=== PATIENT | female | born 1980 | race Hispanic/Latino ===

== ENCOUNTER 2017-08-15 22:09 | Inpatient (IN) | payer BC ==
[2017-08-15 22:49] VITALS: BMI 31.2
[2017-08-15] MEDS ORDERED: Diphenoxylate HCl/Atropine Tablet PO PRN (22:54)
[2017-08-15] MEDS ORDERED: Ondansetron HCl/PF 4 MG/2 ML Vial IVP PRN (22:54)
[2017-08-15] MEDS ORDERED: Carboprost 250 MCG/ML AMP IM PRN (22:54)
[2017-08-15] MEDS ORDERED: HYDROcodone/Acetaminophen 5/325 mg Tablet PO PRN (22:54)
[2017-08-15] MEDS ORDERED: Misoprostol 200 MCG TAB PR PRN (22:54)
[2017-08-15] MEDS ORDERED: Lidocaine 1% (PF) 30 ML VIAL SC PRN (22:54)
[2017-08-15] MEDS ORDERED: Acetaminophen 500 MG TAB PO PRN (22:54)
[2017-08-15] MEDS ORDERED: Promethazine HCl 25 MG/ML VIAL IM PRN (22:54)
[2017-08-15] MEDS ORDERED: LR 500 ML/Oxytocin 10 units 500 ML IV SCH (22:54)
[2017-08-15] MEDS ORDERED: Zolpidem Tartrate 5 MG TAB PO PRN (22:54)
[2017-08-15] MEDS ORDERED: Ibuprofen 800 MG TAB PO PRN (22:54)
[2017-08-15] MEDS: Lactated Ringer's 1,000 ML IV SCH (23:00)
[2017-08-15] MEDS: Misoprostol 100 MCG TAB VAG SCH (23:18)
[2017-08-15 23:21] LABS: Mean Platelet Volume 8.9 fL (7.4-10.4); Red Blood Cell (RBC) Count 3.71 mill/uL (4.20-5.40)
[2017-08-16] MEDS: Misoprostol 100 MCG TAB VAG SCH ×3 (01:58→11:46)
[2017-08-16] MEDS: Lactated Ringer's 1,000 ML IV SCH (06:29)
[2017-08-16] MEDS ORDERED: Lidocaine 1% (PF) 30 ML VIAL ONE (06:58)
[2017-08-16] MEDS: LR / Pitocin 40 units/1000 ml 1,000 ML IV PRN ×2 (07:21→09:47)
--- NOTE | 2017-08-16 07:37 | PDOC.LDHP ---
Labor and Delivery H&P Chief complaint: scheduled induction HPI: 37yo at 39w0d by LMP here for elective IOL. Current gestational age (weeks): 39 Due date: 08/22/17 Dating criteria: last menstrual period Grav: 4 Para: 2 OB History Details: h/o 19w loss with chorioamnionitis Current complications: none Abnormal US findings: No Past Medical History: denies Current medications: pre- vitamins Previous surgical history: cholecystectomy Allergies/Adverse Reactions: Allergies Allergy/AdvReac Type Severity Reaction Status Date / Time No Known Allergies Allergy Verified 08/15/17 22:48 Social history: none - Physical Exam Vital signs reviewed and normal: yes General: breathing through contractions Heart: RRR Lungs: CTAB Abdomen: gravid Extremeties: no edema FHT: category 1 [place] contractions every: q3min - Vaginal Exam cm dilated: 10 Effacement: 100% Station: 3+ (arom clear) - OB Labs Blood type: O RH: positive HIV: negative RPR: negative HEPSAg: negative 1 hour GCT: negative GBS: negative Additional Labs: RubImm - Assessment L&D Assessment: elective induction at term - Plan Plan: admit to L&D, informed consent obtained, anesthesia consult for pain management
--- NOTE | 2017-08-16 07:38 | PDOC.OPDEL ---
OB Operative/Delivery Note Delivery Dr/Surgeon: Adrianna Assist: n/a Pre-Delivery Diagnosis: elective induction Procedure/Post Delivery Dx: spontaneous vaginal delivery Weeks gestation: 39 Anesthesia: local - Findings A Sex: male Weight: 7 lb 9 oz - 5 min: 9 - 10 min: 9 - Additional Findings/Plan Placenta delivered: spontaneous Repaired Obstetrical Laceration: 2nd degree (repaired with 2-0 vicryl usual fashion excellent hemostasis) Estimated blood loss: 300 Compilations/Other Findings: NC x 1 Post delivery plan: routine recovery
[2017-08-16] MEDS ORDERED: Bisacodyl 10 MG SUPP PR PRN (10:36)
[2017-08-16] MEDS ORDERED: LR / Pitocin 40 units/1000 ml 1,000 ML IV SCH (10:36)
[2017-08-16] MEDS ORDERED: Adacel (T-DAP) 0.5 ML VIAL IM ONE (10:36)
[2017-08-16] MEDS ORDERED: Milk Of Magnesia 30 ML UDCUP PO PRN (10:36)
[2017-08-16] MEDS ORDERED: diphenhydrAMINE HCl 25 MG CAP PO PRN (10:36)
[2017-08-16] MEDS ORDERED: Preparation H Ointment 28 GM TUBE PR PRN (10:36)
[2017-08-16] MEDS ORDERED: HYDROcodone/Acetaminophen 5/325 mg Tablet PO PRN ×2 (10:36)
[2017-08-16] MEDS ORDERED: Ondansetron HCl/PF 4 MG/2 ML Vial IVP PRN (10:36)
[2017-08-16] MEDS ORDERED: Benzocaine/Menthol 20-0.5% 60 ML CAN TOP PRN (10:36)
[2017-08-16] MEDS: Docusate (Surfak) 240 MG CAP PO SCH ×2 (11:45→21:32)
[2017-08-16] MEDS: Ferrous Sulfate 325 MG TAB PO SCH ×2 (11:46→16:02)
[2017-08-16] MEDS: Prenatal Vitamin 1 TAB PO SCH (11:46)
[2017-08-16] MEDS: Ibuprofen 800 MG TAB PO SCH ×2 (16:02→21:32)
[2017-08-17 05:56] LABS: Hematocrit 31.4 % (36.0-47.0); Mean Platelet Volume 9.5 fL (7.4-10.4)
[2017-08-17] MEDS: Ibuprofen 800 MG TAB PO SCH ×3 (06:16→21:33)
[2017-08-17] MEDS: Prenatal Vitamin 1 TAB PO SCH (07:47)
[2017-08-17] MEDS: Docusate (Surfak) 240 MG CAP PO SCH ×2 (07:48→21:34)
[2017-08-17] MEDS: Ferrous Sulfate 325 MG TAB PO SCH ×2 (07:48→15:14)
--- NOTE | 2017-08-17 20:03 | PDOC.PP ---
Post Progress Note Post Day #: 1 PO intake tolerated: yes Flatus: yes Ambulation: yes Weight Weight 188 lb - Physical Examination General: NAD Cardiovascular: RRR Respiratory: clear to ausculation bilateral Abdominal: no distention, appropriately TTP Fundus firm & at: umb Skin: no rash Neurological: no gross focal deficits Psychiatric: normal affect Result Diagrams: 08/17/17 04:22 Additional Labs: Post Labs Hep Bs Antigen Non-Reactive S/CO (NonReactive) 08/15/17 22:56 (1) Term delivered Code(s): O80 - ENCOUNTER FOR FULL-TERM UNCOMPLICATED DELIVERY Status: Acute - Assessment/Plan VSSAF Doing well LC consult Rh pos RImm Home tomorrow
[2017-08-18] MEDS: Ibuprofen 800 MG TAB PO SCH (06:09)
--- NOTE | 2017-08-18 09:06 | PDOC.PP ---
Post Progress Note Post Day #: 2 PO intake tolerated: yes Flatus: yes Ambulation: yes Weight Weight 188 lb - Physical Examination General: NAD Cardiovascular: RRR Respiratory: clear to ausculation bilateral Abdominal: no distention, appropriately TTP Fundus firm & at: umb-2 Result Diagrams: 08/17/17 04:22 Additional Labs: Post Labs Hep Bs Antigen Non-Reactive S/CO (NonReactive) 08/15/17 22:56 (1) Term delivered Code(s): O80 - ENCOUNTER FOR FULL-TERM UNCOMPLICATED DELIVERY Status: Acute - Assessment/Plan VSSAF Doing well pain controlled bleeding light Rh pos RImm s/p LC DC home fu 6wk
[2017-08-18 09:39] VITALS: BP 132/66; TEMP 98.5
[2017-08-18] MEDS: Ferrous Sulfate 325 MG TAB PO SCH (09:42)
[2017-08-18] MEDS: Docusate (Surfak) 240 MG CAP PO SCH (09:43)
[2017-08-18] MEDS: Prenatal Vitamin 1 TAB PO SCH (09:43)
== END 2017-08-18 12:17 | disposition home or self-care (01) | DRG 775 ==
LOC: L&D 22:09 → 3SE 08-16 10:39 → 3SW 08-16 20:29
PROVIDERS: ADMIT Student in an Organized Health Care Education/Training Program; ATTEND Student in an Organized Health Care Education/Training Program
PROC: 10907ZC Drainage of Amniotic Fluid, Therapeutic from Products of Conception, Via Natural or Artificial Opening (ICD-10-PCS; 2017-08-15)
PROC: 10E0XZZ Delivery of Products of Conception, External Approach (ICD-10-PCS; principal; 2017-08-17)
PROC: 0KQM0ZZ Repair Perineum Muscle, Open Approach (ICD-10-PCS; 2017-08-17)
DX: O70.1 Second degree perineal laceration during delivery (principal); Z37.0 Single live birth; O69.81X0 Labor and delivery complicated by cord around neck, without compression, not applicable or unspecified; Z3A.39 39 weeks gestation of pregnancy
CPT/HCPCS: 36415; 85027; 86780; 87340; J0595; J2001

== ENCOUNTER 2018-07-24 01:14 | Emergency (ER) | payer BC ==
[2018-07-24 01:39] LABS: #Basophils 0.1 thou/uL (0.0-0.2); #Eosinphils 0.1 thou/uL (0.0-0.7); #Lymphocytes 3.4 thou/uL (1.20-3.40); #Monocytes 0.6 thou/uL (0.11-0.59); #Neutrophils 5.8 thou/uL (1.40-6.50); %Basophils 1.1 % (0.0-1.0); %Eosinophils 1.3 % (0.0-10.0); %Lymphocytes 33.7 % (21.0-51.0); %Monocytes 6.1 % (0.0-10.0); %Neutrophils 57.8 % (42.0-75.0); Hemoglobin 14.2 g/dL (12.0-16.0); Mean Corpuscular HGB CONC 34.4 g/dL (32.0-36.0); Mean Corpuscular Hemoglobin 30.2 pg (27.0-31.0); Mean Corpuscular Volume 87.9 fL (78.0-98.0); Platelet Count 280 thou/uL (130-400); RBC Distribution Width 11.6 % (11.5-14.5); Red Blood Cell (RBC) Count 4.69 mill/uL (4.20-5.40)
[2018-07-24 01:58] LABS: ALT (SGPT) 46 U/L (8-55); AST (SGOT) 76 U/L (5-34); Albumin 4.4 g/dL (3.5-5.0); Alkaline Phosphatase 99 U/L (40-150); Anion Gap 17 mmol/L (10-20); BUN (Urea Nitrogen) 10 mg/dL (7.0-18.7); Bilirubin, Total 0.6 mg/dL (0.2-1.2); Calc. Creatinine Clearance 0 mL/min (70-130); Calcium 9.5 mg/dL (7.8-10.44); Carbon Dioxide 20 mmol/L (22-29); Chloride 106 mmol/L (98-107); Estimated GFR-MDRD Greater than 90; Globulin 3.2 g/dL (2.4-3.5); Glucose 117 mg/dL (70-105); Potassium 3.7 mmol/L (3.5-5.1); Protein, Total 7.6 g/dL (6.0-8.3); Sodium 139 mmol/L (136-145)
[2018-07-24] MEDS ORDERED: Morphine 4 MG/ML VIAL ONE (02:04)
[2018-07-24 02:07] LABS: CK (CPK) 95 U/L (29-168); Lipase 42 U/L (8-78)
[2018-07-24 04:05] LABS: Bilirubin Negative (Negative); Blood, Urine Negative (Negative); Clarity CLEAR (Clear); Glucose, Urine (Dipstick) Negative (Negative); Leukocyte Negative (Negative); Nitrite Negative (Negative); Protein, Urine (Dipstick) Negative (Neg-Trace); Specific Gravity, Urine 1.007 (1.002-1.036)
== END 2018-07-24 04:46 | disposition home or self-care (01) ==
LOC: ERS 01:14
DX: O99.611 Diseases of the digestive system complicating pregnancy, first trimester (principal); K29.70 Gastritis, unspecified, without bleeding; Z87.442 Personal history of urinary calculi
CPT/HCPCS: 80053; 81003; 82550; 83690; 84702; 85025; 93005; 96361; 96374; J2270

== ENCOUNTER 2018-07-29 17:52 | Emergency (ER) | payer BC ==
[2018-07-29 18:37] LABS: #Lymphocytes 1.6 thou/uL (1.20-3.40); #Monocytes 0.5 thou/uL (0.11-0.59); #Neutrophils 4.8 thou/uL (1.40-6.50); %Basophils 0.5 % (0.0-1.0); %Eosinophils 0.6 % (0.0-10.0); %Lymphocytes 22.4 % (21.0-51.0); %Monocytes 7.4 % (0.0-10.0); %Neutrophils 69.1 % (42.0-75.0); Mean Corpuscular HGB CONC 32.6 g/dL (32.0-36.0); Mean Corpuscular Hemoglobin 29.3 pg (27.0-31.0); Mean Corpuscular Volume 89.7 fL (78.0-98.0); Platelet Count 294 thou/uL (130-400); RBC Distribution Width 11.7 % (11.5-14.5); Red Blood Cell (RBC) Count 4.78 mill/uL (4.20-5.40)
[2018-07-29 18:58] LABS: ALT (SGPT) 285 U/L (8-55); AST (SGOT) 342 U/L (5-34); Albumin 4.4 g/dL (3.5-5.0); Alkaline Phosphatase 169 U/L (40-150); Anion Gap 15 mmol/L (10-20); BUN (Urea Nitrogen) 7 mg/dL (7.0-18.7); Bilirubin, Total 1.9 mg/dL (0.2-1.2); Calc. Creatinine Clearance 0 mL/min (70-130); Calcium 9.3 mg/dL (7.8-10.44); Carbon Dioxide 21 mmol/L (22-29); Chloride 106 mmol/L (98-107); Estimated GFR-MDRD Greater than 90; Globulin 3.1 g/dL (2.4-3.5); Glucose 106 mg/dL (70-105); Lipase 32 U/L (8-78); Potassium 3.7 mmol/L (3.5-5.1); Protein, Total 7.5 g/dL (6.0-8.3); Sodium 138 mmol/L (136-145)
== END 2018-07-29 19:30 | disposition left against medical advice (07) ==
LOC: ERS 17:52
DX: Z53.21 Procedure and treatment not carried out due to patient leaving prior to being seen by health care provider (principal)
CPT/HCPCS: 36415; 80053; 83690; 84702; 85025; 93005

== ENCOUNTER 2018-08-02 14:22 | Inpatient (IN) | payer BC ==
[2018-08-02 15:11] LABS: #Lymphocytes 1.6 thou/uL (1.20-3.40); #Monocytes 0.5 thou/uL (0.11-0.59); #Neutrophils 6.9 thou/uL (1.40-6.50); %Basophils 0.1 % (0.0-1.0); %Eosinophils 0.4 % (0.0-10.0); %Monocytes 5.9 % (0.0-10.0); %Neutrophils 75.7 % (42.0-75.0); Hemoglobin 14.3 g/dL (12.0-16.0); Mean Corpuscular HGB CONC 33.8 g/dL (32.0-36.0); Mean Corpuscular Hemoglobin 30.3 pg (27.0-31.0); Mean Corpuscular Volume 89.6 fL (78.0-98.0); Mean Platelet Volume 8.2 fL (7.4-10.4); Platelet Count 286 thou/uL (130-400); RBC Distribution Width 11.6 % (11.5-14.5); Red Blood Cell (RBC) Count 4.72 mill/uL (4.20-5.40); White Blood Cell (WBC) Count 9.1 thou/uL (4.8-10.8)
[2018-08-02 15:35] LABS: ALT (SGPT) 345 U/L (8-55); AST (SGOT) 166 U/L (5-34); Albumin 4.3 g/dL (3.5-5.0); Alkaline Phosphatase 289 U/L (40-150); Anion Gap 13 mmol/L (10-20); BUN (Urea Nitrogen) 8 mg/dL (7.0-18.7); Calc. Creatinine Clearance 0 mL/min (70-130); Calcium 9.4 mg/dL (7.8-10.44); Carbon Dioxide 23 mmol/L (22-29); Chloride 105 mmol/L (98-107); Estimated GFR-MDRD Greater than 90; Globulin 3.3 g/dL (2.4-3.5); Glucose 106 mg/dL (70-105); Lipase 37 U/L (8-78); Potassium 3.8 mmol/L (3.5-5.1); Protein, Total 7.6 g/dL (6.0-8.3); Sodium 137 mmol/L (136-145)
[2018-08-02] MEDS ORDERED: Ondansetron HCl/PF 4 MG/2 ML Vial ONE (15:40)
[2018-08-02] MEDS ORDERED: Morphine 4 MG/ML VIAL ONE (15:41)
[2018-08-02 17:19] LABS: Bilirubin Negative (Negative); Blood, Urine Negative (Negative); Clarity CLOUDY (Clear); Glucose, Urine (Dipstick) Negative (Negative); Leukocyte Small (Negative); Nitrite Negative (Negative); Protein, Urine (Dipstick) Trace mg/dL (Neg-Trace); Specific Gravity, Urine 1.023 (1.002-1.036)
[2018-08-02 17:22] LABS: Bacteria/HPF None Seen HPF (None Seen); Hyaline Casts/LPF 0-3 HYALINE CAST LPF (0-3 Hyaline); Squamous Epithelial 0-3 HPF (0-3); WBC/HPF 0-3 HPF (0-3)
[2018-08-02 17:44] LABS: Crystals/HPF 1+ AMORPH PHOS HPF (Negative); RBC/HPF 0-3 HPF (0-3)
--- NOTE | 2018-08-02 19:49 | PDOC.FPRHP ---
- History of Present Illness Chief Complaint: abdominal pain History of Present Illness: This is a 38 yo F presenting with a CC of abdominal pain. Patient has a PMH of gallstones s/p cholecystectomy and kidney stones. Patient is currently 5 weeks by LMP 06/24/2018 and is a . Patient has beent to the ED 3 times over the past 9 days for the same pain. She began having midepigastric pain about 2 weeks ago. She went to the ER on Wednesday07/30/18 in [place] where an US showed a gallstone in the CBD. The patient describes the pain as sharp, non radiating, intermittent. Drinking makes the pain worse, nothing makes the pain better. She has tried modifying her diet and stated this helped for about 1 week but the pain returned. The patient endorses episodes of vomiting X2 when she gets the pain. She has had decreased PO intake since the pain began. She denies fever, burning/itching/irriation with urination, no vaginal bleeding or leakage from below, no chest pain, SOB, headache, vision changes, or LE swelling.. - Allergies/Adverse Reactions Allergies Allergy/AdvReac Type Severity Reaction Status Date / Time No Known Allergies Allergy Verified 08/02/18 20:10 - Home Medications Medication Instructions Recorded Confirmed Type 21/Iron Fu/Folic Acid 1 tab PO DAILY 08/02/18 08/02/18 History [ Complete Caplet] - History PMHx: kidney stones, gallstones PSHx: cholecystectomy 6 yrs ago FHx: non-contributory Social: denies tobacco, alcohol, or drug use - Review of Systems General: denies: fever/chills, weight/appetite/sleep changes, night sweats, fatigue Eyes: denies: eye pain, vision changes ENT: denies: nasal congestion, rhinorrhea Respiratory: denies: shortness of breath Cardiovascular: denies: chest pain, palpitation, edema Gastrointestinal: reports: vomiting, abdominal pain. denies: nausea, diarrhea, constipation Genitourinary: denies: incontinence, dysuria, polyuria, discharge Skin: denies: rashes, jaundice, itching Musculoskeletal: denies: pain, tenderness, stiffness, swelling - Vital signs BP: 117/70 HR: 74 RR: 16-18 Tmax: 98.1 Pox: 99% on RA Wt: 74.4kg - Physical Exam Constitutional: NAD, awake, alert and oriented, well developed HEENT: normocephalic and atraumatic, EOMI, grossly normal vision, grossly normal hearing, MMM, good dention Neck: supple, FROM Chest: no-tender to palpation, no lesions Heart: RRR, normal S1/S2, no murmurs/rubs/gallops, pulses present, no edema Lungs: CTAB, no respiratory distress, good air movement, no wheezing Abdomen: bowel sounds present -Abdomen: TTP in midepigastrium, guarding presenting, no rebound Skin: no rash/lesions, capillary refill <2 seconds, no jaundice Psychiatric: normal mood and affect, good judgment and insight FMR H&P: Results - Labs Result Diagrams: 08/02/18 14:57 08/02/18 14:57 Lab results: WBC 9.1 thou/uL (4.8-10.8) 08/02/18 14:57 Hgb 14.3 g/dL (12.0-16.0) 08/02/18 14:57 Hct 42.3 % (36.0-47.0) 08/02/18 14:57 MCV 89.6 fL (78.0-98.0) 08/02/18 14:57 Plt Count 286 thou/uL (130-400) 08/02/18 14:57 Neutrophils % 75.7 % (42.0-75.0) H 08/02/18 14:57 Sodium 137 mmol/L (136-145) 08/02/18 14:57 Potassium 3.8 mmol/L (3.5-5.1) 08/02/18 14:57 Chloride 105 mmol/L (98-107) 08/02/18 14:57 Carbon Dioxide 23 mmol/L (22-29) 08/02/18 14:57 BUN 8 mg/dL (7.0-18.7) 08/02/18 14:57 Creatinine 0.65 mg/dL (0.6-1.1) 08/02/18 14:57 Glucose 106 mg/dL (70-105) H 08/02/18 14:57 Calcium 9.4 mg/dL (7.8-10.44) 08/02/18 14:57 Total Bilirubin 1.0 mg/dL (0.2-1.2) 08/02/18 14:57 AST 166 U/L (5-34) H 08/02/18 14:57 ALT 345 U/L (8-55) H 08/02/18 14:57 Alkaline Phosphatase 289 U/L (40-150) H 08/02/18 14:57 Serum Total Protein 7.6 g/dL (6.0-8.3) 08/02/18 14:57 Albumin 4.3 g/dL (3.5-5.0) 08/02/18 14:57 Lipase 37 U/L (8-78) 08/02/18 14:57 Urine Ketones 40 mg/dL (Negative) H 08/02/18 17:00 Urine Blood Negative (Negative) 08/02/18 17:00 Urine Nitrite Negative (Negative) 08/02/18 17:00 Ur Leukocyte Esterase Small (Negative) H 08/02/18 17:00 Urine RBC 0-3 HPF (0-3) 08/02/18 17:00 Urine WBC 0-3 HPF (0-3) 08/02/18 17:00 Ur Squamous Epith Cells 0-3 HPF (0-3) 08/02/18 17:00 Urine Bacteria None Seen HPF (None Seen) 08/02/18 17:00 FMR H&P: A/P - Problem List (1) Choledocholithiasis Current Visit: Yes Status: Acute Code(s): K80.50 - CALCULUS OF BILE DUCT W/ O CHOLANGITIS OR CHOLECYST W/O OBST - Plan This is a 38 yo F here for abdominal pain 2/2 to choledocholithiasis. Abdominal pain 2/2 to choledocholithiasis - [facility] of GI consulted - MRI pending; possible MRCP tomorrow - Tylenol PRN and morphine for pain - Zofran for nausea - NPO at midnight for MRCP procedure tomorrow - CBC, CMP in AM - pt currently 5 weeks by LMP 06/24/18 and confirmed with urine test today - No LOF or vaginal bleeding, no CTX - Will continue to monitor Case discussed with Dr. Marley FMR H&P: Upper Level - Pertinent history 38 yo female here for epigastric abd pain for the last couple weeks. Reports she has had 4 episodes which have required she come to the ER, most recently 3 days ago. It is a sharp pain, lasting up to 6 hours, relieved with medications given in the ER. Not relieved with tylenol. Unable to associate time of day of after meals. Assoc emesis including 2 episodes today. No diarrhea. confirmed at Dr. Rodas's office on 07/22/18. No previous issues with delivered pregnancies, all born at term. One of her miscarriages was due to an infections per patient. s/p cholecystectomy 2011. No other significant medical history. - Pertinent findings 117/70 HR: 74 Temp: 97.4 RR: 16 SO2: 99% on RA GEN: NAD, AOx3 CARD: RRR, no m/g/r PULM: CTAB ABD: BSx4, mildly TTP EXT: no edema WBC: 9.1 H/H: 14.3/42.3 Plt: 286 AST/ALT: 166/345 AlkPhos: 289 - Plan Date/Time: 08/02/181945 IDar DO, have evaluated this patient and agree with findings/plan as outlined by commercial intern resident. Pertinent changes/additions are listed here. 1. Choledocolithiasis GI consulted in the ED, plan is to MRCP in the AM. tylenol for pain until midnight; morphine prn pain NPO after midnight 2. 6 weeks
[2018-08-02] MEDS ORDERED: Acetaminophen 325 MG TAB PO PRN (20:02)
[2018-08-02] MEDS ORDERED: Ondansetron HCl/PF 4 MG/2 ML Vial IVP PRN (20:02)
[2018-08-02] MEDS ORDERED: Ondansetron ODT 4 MG TAB PO PRN (20:02)
[2018-08-02] MEDS ORDERED: Morphine 4 MG/ML VIAL SLOW IVP PRN (20:02)
[2018-08-02] MEDS ORDERED: Morphine 2 MG/ML SYRINGE SLOW IVP PRN (20:02)
[2018-08-02 20:14] LABS: Pregnancy Test - Urine (BHCG) POSITIVE (Negative); Pregu Control Background? CLEAR/WHITE (CLR/WHITE); Pregu Control Bar Appear? YES (CONTROL BAR); Specific Gravity 1.023 (1.002-1.036)
[2018-08-02 20:18] VITALS: BMI 27.3
[2018-08-02] MEDS ORDERED: Sodium Chloride 0.9% 1,000 ML IV SCH (20:23)
--- NOTE | 2018-08-03 00:17 | CON ---
DATE OF CONSULTATION: 08/02/2018 REASON FOR CONSULTATION: Abnormal liver function tests. CONSULTING PHYSICIAN: Jorge Whittaker DO HISTORY OF PRESENT ILLNESS: The patient is a 38-year-old female with no significant past medical his tory other than a completed in 08/2017 presenting with complaints of right upper quadrant/m idepigastric abdominal pain. She states that she was in her usual state of health until approximatel y 2-3 weeks ago when she had the acute onset of midepigastric abdominal pain characterized as a sharp type character, intermittent with periods of complete pain relief, nonradiating, which would reach a severity of 10/10. The pain would usually occur within 30-45 minutes of ingestion of food or liquid , would follow a crescendo decrescendo pattern, progressively worsening over the next 45 minutes and last for approximately 4-6 hours, at which point, it would slowly resolve over the next 1-2 hours. T he pain was worse with eating or drinking any particular food stuff (no specific food triggers) and l humberto down. The pain was better with the administration of pain medications upon her frequent visits to the ER. Associated symptoms include increased abdominal bloating, nausea and vomiting with emesis x2 with nonbloody material within the last 24 hours. She also endorses approximately a 5-pound weig ht loss during this time primarily due to anorexia related to increased abdominal pain. Upon chart r lauro, the patient had been seen at [facility] approximately 2-3 weeks ago and diagnosed with tracy ritis and placed on acid reflux medication. She was then visiting [facility] approximately 1 week ago w hen she had return of her right upper quadrant/midepigastric abdominal pain and seen [facility]. While in the Urgent Care Center, there was a right upper quadrant abdominal ultrasound th at showed possible echogenic foci within the distal common bile duct concerning for choledocholithias is. Of note, the patient also states that she is with her PCP running blood test recently and de termination that she has approximately 4-5 weeks' at this time. Currently, she denies any nausea, vomiting, fevers, chills, dysphagia, odynophagia, diarrhea or const ipation. REVIEW OF SYSTEMS: A 10-category review of systems was obtained with all responses negative except f or the pertinent positives as listed in the HPI. PAST MEDICAL HISTORY: None. PAST SURGICAL HISTORY: Cholecystectomy performed in 2011. FAMILY HISTORY: Denies any GI malignancies. SOCIAL HISTORY: Denies any tobacco, alcohol or illicit drug use. OUTPATIENT MEDICATIONS: Include multivitamin, Carafate, and as needed use of Tums. ALLERGIES: No known drug allergies. PHYSICAL EXAMINATION: VITAL SIGNS: Temperature 98.5, pulse 52, blood pressure 132/66, respiratory rate 20, satting 100% on room air. GENERAL: Patient is lying in bed, in no acute distress, alert and oriented x4. HEENT/NECK: Supple. No JVD noted. No scleral icterus noted as well. CARDIOVASCULAR: Regular rate and rhythm with no discernible murmurs, gallops or rubs. RESPIRATORY: Clear to auscultation bilaterally with no discernible wheezes or rales. ABDOMEN: Normoactive bowel sounds, soft, nondistended. Tenderness to palpation in the midepigastric and right upper quadrant (most especially within the right upper quadrant). EXTREMITIES: No cyanosis, clubbing or edema. LABORATORY DATA: CBC with a white blood cell count of 9.1, hemoglobin 14.3, hematocrit 42.3, platele ts 286. Chemistry with a sodium of 137, potassium 3.8, chloride 105, CO2 of 23, BUN 8, creatinine 0. 65, glucose 106. AST 166, ALT 345, alkaline phosphatase 289. Total bilirubin 1.0. Albumin 4.3. Li pase 37. IMAGING DATA: No current GI imaging available for review other than the right upper quadrant ultraso und obtained at [facility] approximately 1-1.5 weeks ago showing echogenic f oci within the distal common bile duct. ASSESSMENT AND PLAN: The patient is a 38-year-old female with no significant past medical history ot her than recent and delivery in 08/2017, and prior history of gallstones, status post tra cystectomy in 2011, presenting with increased mid epigastric/right upper quadrant abdominal pain. Right upper quadrant abdominal pain. The patient is presenting with acute onset of right upper quadr ant abdominal pain that has been present for the last 2 weeks, characterized as a sharp type sensatio n that was intermittent and lasting for approximately 4-6 hours in duration. The pain is associated with ingestion of either food or liquid and follows a crescendo decrescendo pattern concerning for a biliary type origin. Given the finding of echogenic foci within the distal common bile duct, choledo cholithiasis is definitely within the differential and would fit the pattern somewhat of her current liver function tests; however, her current liver function tests display primarily hepatocellular dist ribution with the total bilirubin being normal and leans away from an obstructive type process, altho ugh it cannot be ruled out at this time. Differential could include acute hepatitis, medication-aura reyes liver injury, increased nausea and vomiting/hyperemesis gravidarum and/or possible gastrointestin al/hepatic malignancy (much less likely). At this point, with her current , further charact erization of her anatomy and possible choledocholithiasis is warranted. RECOMMENDATIONS: 1. We would obtain MRCP with a noncontrasted study for further evaluation of the distal common bile duct and evaluation for choledocholithiasis. 2. We would place patient on broad spectrum antibiotics like Zosyn (safe during pregnancies) for pos sible cholangitis. 3. We would obtain acute hepatitis panel in addition to hepatitis B surface antibody to determine im munity. 4. We would avoid any potential hepatotoxins to prevent any further LFT or liver injury. 5. The patient may need an ERCP in the near future based on the MRCP studies. We will continue to follow. Please call with any additional questions.
[2018-08-03 06:20] LABS: #Basophils 0.1 thou/uL (0.0-0.2); #Eosinphils 0.1 thou/uL (0.0-0.7); #Monocytes 0.5 thou/uL (0.11-0.59); #Neutrophils 3.2 thou/uL (1.40-6.50); %Basophils 1.4 % (0.0-1.0); %Eosinophils 1.5 % (0.0-10.0); %Lymphocytes 34.4 % (21.0-51.0); %Neutrophils 54.7 % (42.0-75.0); Hemoglobin 12.8 g/dL (12.0-16.0); Mean Corpuscular HGB CONC 32.4 g/dL (32.0-36.0); Mean Corpuscular Hemoglobin 29.6 pg (27.0-31.0); Mean Corpuscular Volume 91.5 fL (78.0-98.0); Mean Platelet Volume 8.6 fL (7.4-10.4); Platelet Count 255 thou/uL (130-400); RBC Distribution Width 11.8 % (11.5-14.5); Red Blood Cell (RBC) Count 4.33 mill/uL (4.20-5.40); White Blood Cell (WBC) Count 5.9 thou/uL (4.8-10.8)
[2018-08-03 06:44] LABS: ALT (SGPT) 410 U/L (8-55); AST (SGOT) 234 U/L (5-34); Albumin 3.7 g/dL (3.5-5.0); Alkaline Phosphatase 262 U/L (40-150); Anion Gap 9 mmol/L (10-20); BUN (Urea Nitrogen) 5 mg/dL (7.0-18.7); Bilirubin, Total 0.9 mg/dL (0.2-1.2); Calc. Creatinine Clearance 139 mL/min (70-130); Calcium 8.4 mg/dL (7.8-10.44); Carbon Dioxide 24 mmol/L (22-29); Chloride 108 mmol/L (98-107); Estimated GFR-MDRD Greater than 90; Globulin 2.7 g/dL (2.4-3.5); Glucose 95 mg/dL (70-105); Protein, Total 6.4 g/dL (6.0-8.3); Sodium 137 mmol/L (136-145)
--- NOTE | 2018-08-03 08:34 | PDOC.FM ---
- Subjective Subjective: Pt. reports she is feeling tired but otherwise has no complaints. She reports her abdominal pain and nausea being controlled. She denies chest pain, trouble breathing, or lower extremity pain. - Objective MAR Reviewed: Yes Vital Signs & Weight: Vital Signs (12 hours) Temp Pulse Resp BP Pulse Ox 08/03/18 07:41 98.3 F 64 16 93/51 L 99 08/03/18 06:08 94/55 L 08/03/18 03:57 98.5 F 69 13 89/52 L 98 08/02/18 23:35 98.5 F 67 12 103/59 L 98 Weight Weight 74.48 kg I&O: 08/02/18 08/03/18 08/04/18 06:59 06:59 06:59 Intake Total 2360 Output Total 400 Balance 1959 Result Diagrams: 08/03/18 05:11 08/03/18 05:11 <Blaine Claudio - Last Filed: 08/03/18 13:18> - Objective Vital Signs & Weight: Vital Signs (12 hours) Temp Pulse Resp BP Pulse Ox 08/03/18 16:04 98.3 F 68 18 99/57 L 98 08/03/18 11:05 98.0 F 60 18 101/56 L 99 08/03/18 07:41 98.3 F 64 16 93/51 L 99 08/03/18 06:08 94/55 L Weight Weight 74.48 kg I&O: 08/02/18 08/03/18 08/04/18 06:59 06:59 06:59 Intake Total 2360 Output Total 400 Balance 1959 Result Diagrams: 08/03/18 05:11 08/03/18 05:11 <Aviva Mendoza - Last Filed: 08/03/18 17:13> Phys Exam - Physical Examination Constitutional: NAD HEENT: moist MMs Neck: no JVD Respiratory: no wheezing, clear to auscultation bilateral Cardiovascular: RRR, no significant murmur Gastrointestinal: soft, non-tender, no distention, positive bowel sounds Musculoskeletal: no edema, pulses present Neurological: normal sensation, moves all 4 limbs Psychiatric: normal affect, A&O x 3 Skin: cap refill <2 seconds <Blaine Claudio - Last Filed: 08/03/18 13:18> Dx/Plan (1) Status: Acute (2) Choledocholithiasis Code(s): K80.50 - CALCULUS OF BILE DUCT W/O CHOLANGITIS OR CHOLECYST W/O OBST Status: Acute - Plan Plan: This is a 38 yo female with PMH of gallstones resulting in cholecysectomy Choledocholithiasis -Confirmed by RUQ US. Pt. has morphine this morning for pain control and zofran for nausea. She is scheduled for USHA and MRCP today. Pt. is currently NPO pending these studies. GI has been consulted and we will appreciate their recs. -Week 5 by LMP, we will continue to monitor Code: full Prophylaxis: SCDs Family: none at bedside Disposition: home in 1-2 days pending imaging results. <Blaine Claudio - Last Filed: 08/03/18 13:18> Attending Addendum - Attending Addendum Date/Time: 08/03/18 2538 I personally evaluated the patient and discussed the management with Dr. Claudio. I agree with the History, Examination, Assessment and Plan documented above with any addition or exceptions noted below. Pt with cholodocholithiasis. Will have mrcp today. If stone verified will likely have ercp. Trend liver enzymes. Pt is feeling better today. <Aviva Mendoza - Last Filed: 08/03/18 17:13>
--- NOTE | 2018-08-03 10:30 | MRI ---
MRI ABDOMEN WITHOUT CONTRAST: MRCP: HISTORY: Elevated liver enzymes and common bile duct stone. FINDINGS: The patient is post cholecystectomy. The common bile duct measures 6 mm in diameter. There is a 5 m m focal filling defect, consistent with calculus, in the distal common bile duct. No abnormal biliar y or pancreatic ductal dilatation is seen. The liver, spleen, pancreas, adrenal glands, and left kid justine are normal. A tiny cyst is seen in the inferior pole of the right kidney. No free fluid or lymp hadenopathy is identified. The bone marrow signal is normal. IMPRESSION: Choledocholithiasis. POS: CEDRIC
[2018-08-03] MEDS: Piperacillin/Tazobactam 3.375 GM in Sodium Chloride 0.9% 100 ML IVPB SCH ×3 (11:02→23:53)
[2018-08-03 11:52] LABS: Syphilis Antibody Nonreactive (Nonreactive); Syphilis Antibody Index 0.07 S/CO (<1.00 Non-Reactive)
[2018-08-03 11:57] LABS: HBCM Index 0.11 S/CO (0-0.79); HBSAg Index 0.22 S/CO (0-0.99); HIV (1/2) Antibody/Antigen Non-Reactive (NonReactive); HIV 1/2 INDEX 0.13 S/CO (<1.00); Hep A IgM AB Non-Reactive (NonReactive); Hep A IgM S/CO 0.16 S/CO (0-0.79); Hep B Surf Ag Non-Reactive S/CO (NonReactive); Hep C IgG Ab Non-Reactive (NonReactive); Hep C Index 0.11 S/CO (0-0.79); Hepatitis B Core IGM Abs Non-Reactive (NonReactive)
--- NOTE | 2018-08-03 15:19 | PDOC.EVN ---
Event Note - Event Note Event Note: Pt's condition was reviewed. Pt. underwent MRCP which revealed choledocholithiasis. Pt. will require ERCP prior to discharge and therefore has been changed to inpatient status due to the acuity of the previously unknown diagnosis.
[2018-08-03] MEDS ORDERED: PROPOFOL 200 MG/20 ML VIAL ONE (15:29)
[2018-08-03] MEDS ORDERED: Succinylcholine Chloride 20 MG/ML 10 ml SYRINGE FS ONE (15:29)
[2018-08-03] MEDS ORDERED: ePHEDrine/0.9% NaCl/PF SYRINGE 50 mg/10 ml ONE (15:29)
[2018-08-03] MEDS ORDERED: Indomethacin 50 MG SUPP PR ONE (16:30)
--- NOTE | 2018-08-03 17:08 | EKG ---
Test Reason : Blood Pressure : / mmHG Vent. Rate : 079 BPM Atrial Rate : 079 BPM P-R Int : 170 ms QRS Dur : 088 ms QT Int : 382 ms P-R-T Axes : 000 116 148 degrees QTc Int : 438 ms Normal sinus rhythm Lateral infarct , age undetermined Possible lead reversal Abnormal ECG Confirmed by GUERITA CHAPA, DR. Luque ([id number]) on 08/03/2018 5:07:48 PM Referred By: Confirmed By:DR. Ene DEXTER MD
[2018-08-03] MEDS ORDERED: Iothalamate Meglumine 60% 50 ML VIAL FS ONE (17:49)
[2018-08-03] MEDS ORDERED: Fentanyl 100 MCG/2 ML VIAL ONE (17:57)
[2018-08-03] MEDS ORDERED: Indomethacin 50 MG SUPP ONE (18:10)
--- NOTE | 2018-08-03 20:47 | RAD ---
ERCP: Date: 08-03-18 History: Elevated liver enzymes. Common bile duct stone. FINDINGS: Intraoperative fluoroscopic images of the right upper quadrant were submitted for interpretation. The common duct is cannulated with initial images demonstrating guidewire in place. Common duct and v isualized intrahepatic ducts are normal in caliber. The distal common duct is mostly obscured due to free spill of contrast into the duodenum. However, on the second provided image there is suggestion o f a filling defect in the distal common duct which has slight irregular configuration and may potenti ally represent a common duct calculus which was seen on MRCP on 08-03-18. However, on the final image this filling defect is not appreciated. Correlation with intraoperative findings is recommended. Surg ical clips are seen related to cholecystectomy. POS: SUJEY
[2018-08-03] MEDS ORDERED: Morphine 4 MG/ML VIAL SLOW IVP PRN (20:55)
--- NOTE | 2018-08-03 22:11 | OP ---
DATE OF PROCEDURE: 08/03/2018 PROCEDURE: Endoscopic retrograde cholangiopancreatography with sphincterotomy and stone extraction. INDICATION FOR PROCEDURE: Choledocholithiasis. DESCRIPTION OF PROCEDURE: After the risks and benefits of the procedure were explained to the patien t including risk of bleeding, infection, perforation, reactions to anesthesia, aspiration, and pancre atitis and/or pain, informed consent was obtained. The patient was then taken to the endoscopy suite where general anesthesia was administered via anesthesia support with endotracheal tube intubation. Once the patient was adequately sedated and was intubated and stable on the mechanical ventilation, the patient was then situated into the supine position in preparation for the procedure. Once the pa tient was in adequate position and the C-arm was in correct position as well, the standard duodenosco pe was introduced into the mouth with intubation of the esophagus, stomach, and the proximal small in testine with the findings listed below. The patient tolerated the procedure well with no immediate p erioperative complications. After the procedure, the patient was taken to PACU in satisfactory condi tion. EGD FINDINGS: Limited views were obtained of the esophagus, stomach, and proximal small intestine vi a the duodenal scope of the mucosa visualized. There was no evidence of erosions, ulcerations, mass lesions, or active/recent bleeding in the esophagus, stomach, and proximal small intestine. ERCP FINDINGS: The ampulla was easily identified within the proximal small intestine and was normal in appearance. Using a 0.035 jag wire and a 5 mm sphincterotome, the ampulla was successfully cannul ated with a guidewire placed within the common bile duct and biliary tree to maintain placement. Onc e adequate placement was achieved, a cholangiogram was then performed with a filling defect noted wit hin the distal common bile duct. The filling defect measured approximately 4-5 mm in size with the c ommon bile duct measuring approximately 8-9 mm size. Using the sphincterotome, an adequate sphincter otomy was then performed with good hemostasis achieved afterwards. The sphincterotome was then excha nged via the guidewire for a 9-12 mm balloon, and using exchange technique, the sphincterotome was re moved and replaced with the 9-12 mm balloon. The 9-12 mm balloon, once in position, was advanced to the mid common bile duct, and upon insufflation of the balloon to 9 mm, a balloon sweep was performed obtaining a 4-5 mm yellow pigmented stone. Successive balloon sweeps were then performed at both 9 mm and 12 mm for the entire extrahepatic biliary tree with no further stones or debris retrieved and occlusion cholangiogram at the end of the procedure showed that there was no evidence of filling defe cts, and upon removal of the equipment, fluoroscopy showed good drainage of the biliary tree of contr ast. All equipment was then removed and the patient was transferred to PACU in satisfactory conditio n. IMPRESSION: Choledocholithiasis with successful sphincterotomy and stone extraction of a 4-5 mm yell ow pigmented stone. RECOMMENDATIONS: 1. We would monitor the patient clinically overnight for evidence of posterior CP pancreatitis. 2. We would trend LFTs in the morning for response to treatment. 3. We would continue broad-spectrum antibiotics for now. We will continue to follow. Please call with any questions.
--- NOTE | 2018-08-04 05:25 | PDOC.FM ---
- Subjective Subjective: Pt. reports no pain or nausea this AM. Last does of morphine was lastnight. Pt. had question about lower BP but denies lightheadedness or dizziness. - Objective MAR Reviewed: Yes Vital Signs & Weight: Vital Signs (12 hours) Temp Pulse Resp BP Pulse Ox 08/04/18 04:25 98.3 F 63 16 101/52 L 97 08/03/18 23:45 98.3 F 106 H 16 113/52 L 97 08/03/18 22:35 78 16 112/56 L 08/03/18 21:35 98.4 F 95 16 104/54 L 96 08/03/18 20:35 98.5 F 76 16 112/59 L 97 Weight Weight 74.48 kg I&O: 08/02/18 08/03/18 08/04/18 06:59 06:59 06:59 Intake Total 2360 310 Output Total 400 Balance 1960 310 Result Diagrams: 08/03/18 05:11 08/04/18 05:54 <Blaine Claudoi - Last Filed: 08/04/18 14:50> - Objective Vital Signs & Weight: Vital Signs (12 hours) Temp Pulse Resp BP Pulse Ox 08/04/18 11:37 98.0 F 70 16 98/56 L 98 08/04/18 08:21 97.7 F 64 14 97/49 L 95 08/04/18 08:00 95 08/04/18 04:25 98.3 F 63 16 101/52 L 97 Weight Weight 74.48 kg I&O: 08/03/18 08/04/18 08/05/18 06:59 06:59 06:59 Intake Total 2360 310 480 Output Total 400 Balance 1960 310 480 Result Diagrams: 08/03/18 05:11 08/04/18 05:54 <Aviva Mendoza - Last Filed: 08/04/18 15:09> Phys Exam - Physical Examination Constitutional: NAD HEENT: moist MMs Respiratory: no wheezing, clear to auscultation bilateral Cardiovascular: RRR, no significant murmur Gastrointestinal: soft, non-tender, no distention, positive bowel sounds Musculoskeletal: no edema, pulses present Neurological: moves all 4 limbs Psychiatric: A&O x 3 <Blaine Claudio - Last Filed: 08/04/18 14:50> Dx/Plan (1) Status: Acute (2) Choledocholithiasis Code(s): K80.50 - CALCULUS OF BILE DUCT W/O CHOLANGITIS OR CHOLECYST W/O OBST Status: Acute - Plan Plan: This is a 38 yo female with PMH of gallstones resulting in cholecysectomy Choledocholithiasis -Confirmed by RUQ US. Pt. has morphine this morning for pain control and zofran for nausea. An ERCP was performed yesterday with sphincterotomy and removal of 4 -5mm stone. Pt. is on clear liquid diet. ALT, AST, and alk phos are trending down. -Week 5 by LMP, we will continue to monitor Code: full Prophylaxis: SCDs Family: none at bedside Disposition: home today or tomorrow depending on clinical presentation <Blaine Claudio - Last Filed: 08/04/18 14:50> Attending Addendum - Attending Addendum Date/Time: 08/04/18 0443 I personally evaluated the patient and discussed the management with Dr. Claudio. I agree with the History, Examination, Assessment and Plan documented above with any addition or exceptions noted below. The patient had ERCP yesterday. The patient is feeling better. Will advance diet. The patient may be able to discharge this afternoon. <Aviva Mendoza - Last Filed: 08/04/18 15:09>
[2018-08-04] MEDS: Piperacillin/Tazobactam 3.375 GM in Sodium Chloride 0.9% 100 ML IVPB SCH ×2 (05:54→13:01)
[2018-08-04 06:57] LABS: ALT (SGPT) 292 U/L (8-55); AST (SGOT) 83 U/L (5-34); Albumin 3.6 g/dL (3.5-5.0); Alkaline Phosphatase 227 U/L (40-150); Anion Gap 10 mmol/L (10-20); BUN (Urea Nitrogen) 5 mg/dL (7.0-18.7); Bilirubin, Total 0.8 mg/dL (0.2-1.2); Calc. Creatinine Clearance 160 mL/min (70-130); Calcium 8.5 mg/dL (7.8-10.44); Carbon Dioxide 22 mmol/L (22-29); Chloride 107 mmol/L (98-107); Estimated GFR-MDRD Greater than 90; Globulin 2.7 g/dL (2.4-3.5); Glucose 92 mg/dL (70-105); Potassium 3.7 mmol/L (3.5-5.1); Protein, Total 6.3 g/dL (6.0-8.3); Sodium 135 mmol/L (136-145)
[2018-08-04 11:38] VITALS: BP 98/56; TEMP 98
--- NOTE | 2018-08-05 07:24 | DIS-2 ---
DATE OF ADMISSION: 08/02/2018 DATE OF DISCHARGE: 08/04/2018 RESIDENT: Dr. Blaine Claudio ADMITTING ATTENDING: Dr. Aviva Mendoza DISCHARGE ATTENDING: Dr. Aviva Mendoza CONSULTATIONS: GI, Dr. Sebastián Drake PROCEDURES: 1. ERCP with sphincterotomy and stone extraction, ERCP x-ray showing common bile duct was cannulated with images demonstrating guidewire in place. 2. MRCP showing choledocholithiasis. PRIMARY DIAGNOSIS: Choledocholithiasis. SECONDARY DIAGNOSIS: First trimester . DISCHARGE MEDICATIONS: vitamins, Tylenol 650 q.4h. p.r.n. pain. DISCONTINUED MEDICATIONS: None. HISTORY OF PRESENT ILLNESS AND HOSPITAL COURSE: This is a 38-year-old female with a past medical his tory of gallstones, status post cholecystectomy as well as kidney stones. In addition, the patient i s 5 weeks based on LMP of 06/24/2018. The patient presented with abdominal pain and was katie gnosed with choledocholithiasis. MRCP was performed confirming the same. Dr. Drake performed ERCP r emoving a 5 mm stone. The patient stayed the night and tolerated p.o. intake. ALT, AST and alkaline phosphatase trended down after stone removal and the patient's pain was nonexistent at the time of d ischarge. DISPOSITION: Stable. DISCHARGE INSTRUCTIONS: 1. Location: Home. 2. Activity: As tolerated. 3. Diet: Low fat diet. 4. Follow up with Dr. Drake and primary care physician in 1-2 weeks.
== END 2018-08-04 16:15 | disposition home or self-care (01) | DRG 781 ==
LOC: ERS 14:22 → 2SW 19:45 → OBSVTOIN 19:45 → ONC 08-03 18:41
PROVIDERS: ADMIT Family Medicine; ATTEND Family Medicine
PROC: 0FC98ZZ Extirpation of Matter from Common Bile Duct, Via Natural or Artificial Opening Endoscopic (ICD-10-PCS; principal; 2018-08-03)
DX: O26.611 Liver and biliary tract disorders in pregnancy, first trimester (principal); K80.50 Calculus of bile duct without cholangitis or cholecystitis without obstruction; K92.89 Other specified diseases of the digestive system; Z3A.01 Less than 8 weeks gestation of pregnancy; O09.521 Supervision of elderly multigravida, first trimester; Z90.49 Acquired absence of other specified parts of digestive tract
CPT/HCPCS: 36415; 74181; 74330; 80053; 80074; 81003; 81015; 81025; 83690; 84702; 85025; 86780; 87389; 93005; 96374; 96375; A4216; J2270; J2405; J2543; J2704; J3010; J7050; Q9961

== ENCOUNTER 2019-01-02 15:55 | Outpatient (CLI) | payer BC ==
--- NOTE | 2019-01-02 17:39 | RAD ---
CHEST 2 VIEWS: INDICATION: Abnormal breath sounds with shortness of breath. COMPARISON: None. FINDINGS: No definite consolidation, pleural effusion, or pneumothorax is evident. Heart size is normal-appear ing. No acute osseous abnormality is evident. IMPRESSION: No acute cardiopulmonary abnormality. POS: TIANNAH
== END 2019-01-02 15:56 | disposition home or self-care (01) ==
LOC: BICRAD 15:55
PROVIDERS: ATTEND Student in an Organized Health Care Education/Training Program
DX: R09.89 Other specified symptoms and signs involving the circulatory and respiratory systems (principal)
CPT/HCPCS: 71046

== ENCOUNTER 2019-03-22 19:18 | Day surgery (SDC) | payer BC ==
[2019-03-22 19:49] VITALS: BMI 30.4
--- NOTE | 2019-03-22 21:26 | PDOC.LDHP ---
Labor and Delivery H&P Chief complaint: contractions HPI: 38 y/o at 38w5d, patient of Dr. Rodas, presents with contractions becoming more painful and regular. Denies VB, LOF, or decreased FM. ROS neg for HEENT, CV, pulm, GI, , neuro, psych, skin, musculoskeletal, or constitutional symptoms other than mentioned above. OB History Details: 3 prior term SVDs Current complications: none Current medications: pre- vitamins Previous surgical history: cholecystectomy Allergies/Adverse Reactions: Allergies Allergy/AdvReac Type Severity Reaction Status Date / Time No Known Allergies Allergy Verified 08/02/18 20:10 Social history: none - Physical Exam Vital signs reviewed and normal: yes General: NAD, resting Lungs: nonlabored breathing Abdomen: gravid Extremeties: no edema FHT: category 1 (130s, mod variability, + accels, no decels) Many contractions every: 3-5 mins - Vaginal Exam cm dilated: 2 Effacement: 50% Station: -3 - Assessment 38 y/o at 38w6d with no e/o active labor. Ctx resolved with walking. status reassuring with reactive NST. - Plan -: D/c home with precautions. Scheduled for induction 03/24.
== END 2019-03-22 22:04 | disposition home or self-care (01) ==
LOC: L&D/OP 19:18
PROVIDERS: ATTEND Student in an Organized Health Care Education/Training Program
DX: O47.1 False labor at or after 37 completed weeks of gestation (principal); Z3A.38 38 weeks gestation of pregnancy
CPT/HCPCS: 99282

== ENCOUNTER 2019-03-24 04:12 | Inpatient (IN) | payer BC ==
[2019-03-24 04:38] VITALS: BMI 35.2
[2019-03-24] MEDS ORDERED: NS w/ Oxytocin 10 units 500 ML IV SCH ×2 (05:00)
[2019-03-24] MEDS ORDERED: Lidocaine 1% (PF) 30 ML VIAL SC PRN (05:00)
[2019-03-24] MEDS ORDERED: Promethazine HCl 25 MG/ML VIAL IM PRN (05:01)
[2019-03-24] MEDS ORDERED: Ondansetron PF 4 MG/2 ML Vial IVP PRN ×2 (05:01→11:29)
[2019-03-24] MEDS ORDERED: Lactated Ringer's 1,000 ML IV SCH (05:01)
[2019-03-24] MEDS ORDERED: Butorphanol Tartrate 1 MG/ML VIAL SLOW IVP PRN (05:01)
[2019-03-24 05:24] LABS: Hemoglobin 12.7 g/dL (12.0-16.0); Mean Corpuscular HGB CONC 33.5 g/dL (32.0-36.0); Mean Corpuscular Hemoglobin 28.5 pg (27.0-31.0); Mean Corpuscular Volume 85.1 fL (78.0-98.0); Mean Platelet Volume 8.4 fL (7.4-10.4); Platelet Count 217 thou/uL (130-400); Red Blood Cell (RBC) Count 4.44 mill/uL (4.20-5.40); White Blood Cell (WBC) Count 7.6 thou/uL (4.8-10.8)
[2019-03-24 05:55] LABS: HBSAg Index 0.38 S/CO (0-0.99); Hep B Surf Ag Non-Reactive S/CO (NonReactive); Syphilis Antibody Nonreactive (Nonreactive)
[2019-03-24] MEDS ORDERED: Misoprostol 200 MCG TAB ONE (07:21)
--- NOTE | 2019-03-24 07:57 | PDOC.LDHP ---
Labor and Delivery H&P Chief complaint: contractions HPI: 38yo A2 at 39w0d by LMP here with contractions since 245am this am. No LOF VB Current gestational age (weeks): 39 Due date: 03/31/19 Dating criteria: last menstrual period Grav: 6 Para: 5 Current complications: other (anemia) Abnormal US findings: No (EFW 62%ile at 34w) Current medications: pre-martinez vitamins, iron Previous surgical history: cholecystectomy (, ERCP with sphincterotomy and stone extraction) Allergies/Adverse Reactions: Allergies Allergy/AdvReac Type Severity Reaction Status Date / Time No Known Allergies Allergy Verified 03/24/19 04:39 Social history: none - Physical Exam Vital signs reviewed and normal: yes General: NAD Heart: RRR Lungs: CTAB Abdomen: gravid Extremeties: no edema FHT: category 1, variability present Arroyo contractions every: 4-5min - Vaginal Exam cm dilated: 7 Effacement: 90% Station: 0 (arom scant clear) - OB Labs Blood type: O RH: positive Antibody Screen: negative HIV: negative RPR: negative HEPSAg: negative 1 hour GCT: negative GBS: negative Urine drug screen: negative Rubella: immune - Assessment L&D Assessment: term patient in labor - Plan Plan: admit to L&D, labor augmentation if indicated, informed consent obtained, anesthesia consult for pain management
[2019-03-24] MEDS: NS / Oxytocin 40 units/1000ml 1,000 ML IV SCH ×2 (08:50→09:37)
[2019-03-24] MEDS ORDERED: HYDROcodone/Acetaminophen 5/325 mg Tablet PO SCH (09:10)
--- NOTE | 2019-03-24 11:07 | PDOC.OPDEL ---
OB Operative/Delivery Note Delivery Dr/Surgeon: Adrianna Assist: n/a Pre-Delivery Diagnosis: active labor Procedure/Post Delivery Dx: spontaneous vaginal delivery Weeks gestation: 39 Anesthesia: local - Findings A Sex: female - 1 min: 9 - 5 min: 9 - Additional Findings/Plan Placenta delivered: spontaneous Repaired Obstetrical Laceration: 1st degree (repaired with 3-0 vicryl for hemostasis) Estimated blood loss: 25cc Post delivery plan: routine recovery
[2019-03-24] MEDS ORDERED: Benzocaine-Menthol 82.5 ML CAN TOP PRN (11:29)
[2019-03-24] MEDS ORDERED: HYDROcodone/Acetaminophen 5/325 mg Tablet PO PRN ×2 (11:29)
[2019-03-24] MEDS ORDERED: diphenhydrAMINE 25 MG CAP PO PRN (11:29)
[2019-03-24] MEDS ORDERED: NS / Oxytocin 40 units/1000ml 1,000 ML IV SCH (11:29)
[2019-03-24] MEDS ORDERED: Lanolin Ointment 7 GM TUBE TOP PRN (11:29)
[2019-03-24] MEDS ORDERED: Bisacodyl 10 MG SUPP PR PRN (11:29)
[2019-03-24] MEDS ORDERED: Milk Of Magnesia 30 ML UDCUP PO PRN (11:29)
[2019-03-24] MEDS ORDERED: Preparation H Ointment 28 GM TUBE PR PRN (11:29)
[2019-03-24] MEDS: Ibuprofen 800 MG TAB PO SCH ×2 (14:01→21:35)
[2019-03-24] MEDS: Ferrous Sulfate 325 MG TAB PO SCH (18:19)
[2019-03-24] MEDS: Docusate Calcium (SURFAK) 240 MG CAP PO SCH (21:35)
[2019-03-25] MEDS: Ibuprofen 800 MG TAB PO SCH ×2 (06:10→13:59)
[2019-03-25] MEDS: Ferrous Sulfate 325 MG TAB PO SCH (07:57)
--- NOTE | 2019-03-25 07:57 | PDOC.PP ---
Post Progress Note Post Day #: 1 Subjective: Having some pain this morning but overall doing well. PO intake tolerated: yes Ambulation: yes Vital Signs (12 hours) Temp Pulse Resp BP Pulse Ox 03/25/19 03:55 98.1 F 58 L 20 100/54 L 03/25/19 00:25 98.0 F 69 18 95/53 L 03/24/19 20:35 97.8 F 60 18 99/58 L 95 Weight Weight 180 lb - Physical Examination General: NAD Respiratory: non-labored breathing Abdominal: lochia (normal), no distention, appropriately TTP Fundus firm & at: below umbilicus Neurological: no gross focal deficits Psychiatric: A&Ox3, normal affect Result Diagrams: 03/24/19 05:07 Additional Labs: Post Labs Blood Type O POSITIVE 03/24/19 05:07 Hep Bs Antigen Non-Reactive S/CO (NonReactive) 03/24/19 05:07 (1) Term delivered Code(s): O80 - ENCOUNTER FOR FULL-TERM UNCOMPLICATED DELIVERY Status: Acute - Assessment/Plan Continue routine PP care. Patient would like to go home today if infant can. Possible d/c today vs tomorrow.
[2019-03-25] MEDS: Docusate Calcium (SURFAK) 240 MG CAP PO SCH (08:29)
[2019-03-25] MEDS ORDERED: Prenatal Vitamin 1 TAB PO SCH (09:00)
[2019-03-25] MEDS ORDERED: Adacel (T-DAP) 0.5 ML SYRINGE IM ONE (09:00)
[2019-03-25 09:06] VITALS: BP 111/53; TEMP 97.8
--- NOTE | 2019-03-25 14:01 | PDOC.EVN ---
Event Note - Event Note Event Note: Ready for home, baby has been discharged. VSS AF. DC home with precautions. Rx. for Tylenol 3 #10 peer pt. request. RTC with Dr. Rodas in 6 weeks.
== END 2019-03-25 14:55 | disposition home or self-care (01) | DRG 807 ==
LOC: L&D 04:12 → 3SW 11:59
PROVIDERS: ADMIT Student in an Organized Health Care Education/Training Program; ATTEND Student in an Organized Health Care Education/Training Program
PROC: 10E0XZZ Delivery of Products of Conception, External Approach (ICD-10-PCS; principal; 2019-03-24)
PROC: 0HQ9XZZ Repair Perineum Skin, External Approach (ICD-10-PCS; 2019-03-24)
PROC: 10907ZC Drainage of Amniotic Fluid, Therapeutic from Products of Conception, Via Natural or Artificial Opening (ICD-10-PCS; 2019-03-24)
DX: O99.02 Anemia complicating childbirth (principal); Z37.0 Single live birth; D64.9 Anemia, unspecified; O70.0 First degree perineal laceration during delivery; Z3A.39 39 weeks gestation of pregnancy
CPT/HCPCS: 36415; 85027; 86780; 86850; 86900; 86901; 87340; 99282; J2001